=== PATIENT | male | born 1995 ===

== ENCOUNTER 2020-11-03 21:21 | Emergency (ER) | payer OTHER ==
[~2020-11-03] VITALS: Ht 157 cm; Wt 83.0 kg
[2020-11-03 23:29] LABS: BASOPHILS # (AUTO) 0.1 10^3/uL (0.0-0.1); BASOPHILS % (AUTO) 1 % (0-10); EOSINOPHILS # (AUTO) 0.6 10^3/uL (0.0-0.3); EOSINOPHILS % (AUTO) 5 % (0-10); HEMATOCRIT 46 % (40-54); HEMOGLOBIN 14.8 g/dL (13.3-17.7); LYMPHOCYTES # (AUTO) 2.4 10^3/uL (1.0-4.0); LYMPHOCYTES % (AUTO) 19 % (12-44); MEAN CORPUSCULAR HEMOGLOBIN 29 pg (25-34); MEAN CORPUSCULAR HGB CONC 33 g/dL (32-36); MEAN CORPUSCULAR VOLUME 89 fL (80-99); MEAN PLATELET VOLUME 11.6 fL (9.0-12.2); MONOCYTES # (AUTO) 1.1 10^3/uL (0.0-1.0); MONOCYTES % (AUTO) 9 % (0-12); NEUTROPHILS # (AUTO) 8.2 10^3/uL (1.8-7.8); NEUTROPHILS % (AUTO) 66 % (42-75); PLATELET COUNT 318 10^3/uL (130-400); WHITE BLOOD COUNT 12.5 10^3/uL (4.3-11.0)
--- NOTE | 2020-11-04 | Diagnostic Imaging Report ---
INDICATION: Fever and cough. Frontal chest obtained at 1155 p.m. There is no prior study for comparison. Heart and mediastinal silhouette are normal in appearance. The lungs appear clear. There is no pneumothorax or pleural fluid. IMPRESSION: Negative chest. Dictated by: Dictated on workstation # [id number]
[2020-11-04] MEDS ORDERED: DOXY100T2 PO (00:05)
[2020-11-04] MEDS ORDERED: RT-ALBUINH IH (00:05)
[2020-11-04] MEDS ORDERED: METH4TAB PO (00:05)
--- NOTE | 2020-11-04 00:06 | ED Respiratory ---
General Chief Complaint: Respiratory Problems Stated Complaint: COUGH,WHEEZING,CONGESTION,CHEST PRESSURE Nursing Triage Note: PT PRESENTS TO ED FOR SOB X'S 3 WEEKS. PT STATES THAT IT GETS WORSE WHEN HE STRESSES OUT. HIS NEIGHBORS KIDS JUST GOT OVER RSV. DENIES FEVERS. PT REPORTS HE GETS LUNG PAIN THAT THEN TRAVELS TO HIS CHEST. PT AMB. TO ROOM 09 WITHOUT DIFFICULTY. 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 Physical Exam Vital Signs - First Documented 11/03/20 22:18 Temp 37.7 Pulse 99 B/P (MAP) 136/80 (98) O2 Delivery Room Air Capillary Refill : Less Than 3 Seconds Height: '" Weight: lbs. oz. kg; 33.00 BMI Method: Progress/Results/Core Measures Suspected Sepsis SIRS Temperature: Pulse: 99 Respiratory Rate: Laboratory Tests 11/03/20 22:30: White Blood Count 12.5H Blood Pressure 136 /80 Mean: 98 Laboratory Tests 11/03/20 22:30: Platelet Count 318 Results/Orders Lab Results Laboratory Tests Test 11/03/20 22:20 11/03/20 22:30 Range/Units Influenza Type A (RT-PCR) Not Detected Not Detecte Influenza Type B (RT-PCR) Not Detected Not Detecte SARS-CoV-2 RNA (RT-PCR) Not Detected Not Detecte White Blood Count 12.5 H 4.3-11.0 10^3/uL Red Blood Count 5.10 4.30-5.52 10^6/uL Hemoglobin 14.8 13.3-17.7 g/dL Hematocrit 46 40-54 % Mean Corpuscular Volume 89 80-99 fL Mean Corpuscular Hemoglobin 29 25-34 pg Mean Corpuscular Hemoglobin Concent 33 32-36 g/dL Red Cell Distribution Width 12.7 10.0-14.5 % Platelet Count 318 130-400 10^3/uL Mean Platelet Volume 11.6 9.0-12.2 fL Immature Granulocyte % (Auto) 1 % Neutrophils (%) (Auto) 66 42-75 % Lymphocytes (%) (Auto) 19 12-44 % Monocytes (%) (Auto) 9 0-12 % Eosinophils (%) (Auto) 5 0-10 % Basophils (%) (Auto) 1 0-10 % Neutrophils # (Auto) 8.2 H 1.8-7.8 10^3/uL Lymphocytes # (Auto) 2.4 1.0-4.0 10^3/uL Monocytes # (Auto) 1.1 H 0.0-1.0 10^3/uL Eosinophils # (Auto) 0.6 H 0.0-0.3 10^3/uL Basophils # (Auto) 0.1 0.0-0.1 10^3/uL Immature Granulocyte # (Auto) 0.1 0.0-0.1 10^3/uL My Orders Orders - YOKASTA NUNEZ DO Covid 19 Inhouse Test (11/03/20 22:14) Influenza A And B By Pcr (11/03/20 22:14) Ekg Tracing (11/03/20 22:36) Monitor-Rhythm Ecg Trace Only (11/03/20 22:36) Chest 1 View, Ap/Pa Only (11/03/20 23:22) Cbc With Automated Diff (11/03/20 23:22) Vital Signs/I&O 11/03/20 22:18 Temp 37.7 Pulse 99 B/P (MAP) 136/80 (98) O2 Delivery Room Air Capillary Refill : Less Than 3 Seconds 2 Blood Pressure Mean: 98 Departure Impression Primary Impression: Person under investigation for COVID-19 Additional Impression: Bronchitis Disposition: 01 HOME, SELF-CARE Condition: Stable Departure-Patient Inst. Decision time for Depature: 00:05 Referrals: NO,LOCAL PHYSICIAN (PCP) Primary Care Physician Patient Instructions: COVID-19 Overview, Acute Bronchitis, Adult (DC) Add. Discharge Instructions: NO SMOKING OR VAPING TYLENOL 1 GRAM/ MOTRIN 800 MG 4 TIMES A DAY NEEDED FOR PAIN OR FEVER OVER THE COUNTER MUCINEX DM FOR COUGH LOTS OF CLEAR LIQUIDS FOLLOW UP WITH OF DARRIAN IN 2-3 DAYS IF NO BETTER QUARANTINE YOURSELF AND ALL HOUSEHOLD MEMBERS FOR THE NEXT 7 DAYS, YOU MAY NEED TO BE RECHECKED FOR COVID IN A FEW DAYS IF YOU ARE STILL HAVING SYMPTOMS All discharge instructions reviewed with patient and/or family. Voiced understanding. Scripts Albuterol Sulfate (PROAIR HFA) 1 Puff Puff 2 PUFF IH Q4H, #1 EA 1 PUFF = 90 MCG Prov: YOKASTA NUNEZ DO 11/04/20 Methylprednisolone (Medrol) 4 Mg Tab.ds.pk 4 MG PO UD for 6 Days, #21 PKG PER DOSE PACK INSTRUCTIONS Prov: YOKASTA NUNEZ DO 11/04/20 Doxycycline Hyclate (Doxycycline Hyclate) 100 Mg Tablet 100 MG PO BID, #20 TAB 0 Refills Prov: YOKASTA NUNEZ DO 11/04/20 YOKASTA NUNEZ DO Nov 04, 2020 00:06
[2020-11-04 00:14] VITALS: BP 140/74
== END 2020-11-04 00:32 | disposition home or self-care (01) ==
LOC: ER 21:27
DX: J40 Bronchitis, not specified as acute or chronic (principal); F17.210 Nicotine dependence, cigarettes, uncomplicated; Z20.822 Contact with and (suspected) exposure to COVID-19
CPT/HCPCS: 36415; 71045; 85025; 87636; 93005; 93041